=== PATIENT | female | born 1940 | race Caucasian/White ===

== ENCOUNTER → 2018-01-20 | Outpatient (CLI) | payer MEDICARE ==
[~2018-01-20] MED LIST: AMOX-559 PO; ASPI81TA94 PO; ATR10 PO; CALC100C PO; CEFU250T11 PO; CIPR-214 PO; CRAN500C11 PO; DIPH0.5D12 IM; FAMO20TA28 PO; FLU45SYR25 IM ONLY; GLUC-198 PO; GLUC500C29 PO; HYDR-2966 PO; HYDR-318 PO; HYDR12.558 PO; IBAN150T3 PO; IBUP-1671 PO; LEVO75TA73 PO; LIS20 PO; LISI20TA29 PO; PHEN200T32 PO; PNEU0.5D3 IM; SIMV-54 PO; [UNRECOGNIZED DRUG - CODE] IM; simvastatin PO
[2018-01-20 09:58] LABS: LDL CHOLESTEROL 87 mg/dl
== END ==
LOC: LAB 09:00
PROVIDERS: ATTEND Internal Medicine
DX: E78.00 Pure hypercholesterolemia, unspecified (principal); I10 Essential (primary) hypertension
CPT/HCPCS: 36415; 82040; 82247; 82310; 82374; 82435; 82465; 82565; 82947; 83718; 84075; 84132; 84155; 84295; 84450; 84460; 84478; 84520

== ENCOUNTER → 2018-03-10 | Outpatient (CLI) | payer MEDICARE ==
[~2018-03-10] MED LIST changes: +LISI-374 PO
--- NOTE | 2018-03-11 14:57 | RADIOLOGY IMAGING REPORT ---
[place] [facility] [place] NAME: HONG MEDINA : [id number] MR: [id number] V: [id number] EXAM DATE: [id number] ORDERING PHYSICIAN: IRINA MUHAMMAD TECHNOLOGIST: Mariel Alarcon PROCEDURE:BILATERAL DIGITAL SCREENING MAMMOGRAM WITH CAD ASSISTED INTERPRETATION & 3D TOMOSYNTHESIS COMPARISON:Prior mammograms 01/08/17, 01/25/15. INDICATIONS:SCREENING FINDINGS: MLO and CC views of both Right and Left breasts were obtained. This exam was reviewed with the aid of CAD. Breast tissue demonstrates scattered fibroglandular tissue density. Benign calcifications are seen in the Right breast, unchanged. There is a lymph node in the Left axilla, stable. There is no suspicious mass, calcification, or architectural distortion. DIAGNOSTIC CATEGORY 2--BENIGN FINDING. RECOMMENDATIONS: ROUTINE MAMMOGRAM AND CLINICAL EVALUATION. IMPRESSION: BIRADS 2: Benign finding. No mammographic evidence for malignancy. Dictated by: Oren Gage M.D. on 03/11/2018 at 11:11 Transcribed by: [email or web address] on 03/11/2018 at 14:37 Approved by: Oren Gage M.D. on 03/11/2018 at 14:57 [facility]
== END ==
LOC: MAMO 01:44
PROVIDERS: ATTEND Internal Medicine
DX: Z12.31 Encounter for screening mammogram for malignant neoplasm of breast (principal); R92.1 Mammographic calcification found on diagnostic imaging of breast
CPT/HCPCS: 77063; 77067